=== PATIENT | female | born 1990 | race Caucasian/White ===

== ENCOUNTER 2018-10-02 17:19 | Emergency (ER) | payer SELFPAY ==
[2018-10-02 17:24] VITALS: BP 121/83; PULSE 81; TEMP 98.3; BMI 21.6
[2018-10-02] MEDS ORDERED: ONDANSETRON 4 MG/2 ML VIAL IVPUSH ONE (17:38)
[2018-10-02] MEDS ORDERED: SODIUM CHLORIDE 0.9% 1000 ML INFUS.BAG IV ONE (17:38)
[2018-10-02] MEDS ORDERED: ONDANSETRON 4 MG/2 ML VIAL ONE (17:41)
--- NOTE | 2018-10-02 17:50 | PDOC ---
Attending Attestation - Resident Resident Name: Wendy Boyce - ED Attending Attestation I have performed the following: I have examined & evaluated the patient, The case was reviewed & discussed with the resident, I agree w/resident's findings & plan, Exceptions are as noted - HPI HPI: 10/02/18 18:09 Reviewed Residents HPI - Physicial Exam PE: 10/02/18 18:09 Reviewed Residents PE - Medical Decision Making 10/02/18 18:09 27 years old past medical history significant for paroxysmal tachycardia on beta yennifer, IBS presents to the ED with nausea vomiting diarrhea for the last 2 days as well as multiple falls and head injuries while snowboarding. No loss of consciousness Today patient noted dark urine weakness muscle aches headache and commented that yesterday she appeared confused her friends Nonfocal neurologic examination at this time ill-appearing however given history we'll check labs CK hydrate test head CT IV Tylenol observe and reassess Labs notable for mild rhabdo with nl. Creatinine. Plan is 2nd liter NS, recheck CK, if trending down and pt. tolerating PO, can be discharged home Dr. Shelton to follow up labs and re-evaluate patient 10/02/18 18:57
[2018-10-02] MEDS ORDERED: ACETAMINOPHEN INJECTION 100 ML IVPB ONE (18:07)
[2018-10-02] MEDS ORDERED: ACETAMINOPHEN 1000 MG/100 ML VIAL (NON FORMULARY) IVPB ONE (18:07)
--- NOTE | 2018-10-02 18:07 | PDOC ---
History of Present Illness - General Chief Complaint: Vomiting/Diarrhea Stated Complaint: body aches,diarrhea,vomiting Time Seen by Provider: 10/02/18 17:39 History Source: Patient Exam Limitations: No Limitations - History of Present Illness Initial Comments: Pt is a 27 yo F, with PMH of IBS, GERD, and tachycardia (PVCs, palpitations, takes 25 mg PO metoprolol Qday), who is presenting with complaints of nausea, vomiting, diffuse body aches, and loose stool x2 days. Pt states she went snowboarding for 2 days, starting 3 days ago, and fell "numerous times". She was wearing a helmet and did not have any LOC. When she was leaving from snowboarding, she also slipped and fell on the ice and hit her head, and also hit her head with the car door. She has had trouble articulating her sentences. Starting yesterday, she also had multiple episodes of NB loose brown stool, nausea, and one episode of NBNB vomiting. Her urine has been dark. She had mild headache and photophobia today with body aches "all over". Pt denies any recent fevers/chills, vision changes, syncope, chest pain, palpitations, SOB, abdominal pain, dysuria/hematuria/urgency, or joint/leg swelling. Social: Pt denies any cigarette, alcohol, or drug use. Pt denies any recent travel or sick contacts. Surgical: no relevant history. Family: no relevant history. 10/02/18 18:09 Past History - Travel Traveled outside of the country in the last 30 days: No Close contact w/someone who was outside of country & ill: No - Past Medical History Allergies/Adverse Reactions: Allergies Allergy/AdvReac Type Severity Reaction Status Date / Time metoclopramide HCl AdvReac Verified 10/02/18 17:20 [From Reglan] Home Medications: Ambulatory Orders Esomeprazole Mag Trihydrate [Nexium] 20 mg PO DAILY 11/22/14 Metoprolol Tartrate 25 mg PO DAILY 10/02/18 Cardiac Disorders: Yes (PVC) COPD: No GI Disorders: Yes (GERD) - Surgical History Abdominal Surgery: No GI Surgery: No Neurologic Surgery: No - Immunization History Immunization Up to Date: Yes - Suicide/Smoking/Psychosocial Hx Smoking History: Never smoked Have you smoked in the past 12 months: No Information on smoking cessation initiated: No Hx Alcohol Use: Yes (socially) Drug/Substance Use Hx: No Substance Use Type: None Review of Systems - Review of Systems Able to Perform ROS?: Yes Is the patient limited Fijian proficient: No Constitutional: Yes: Malaise, Weight Stable. No: Chills, Diaphoresis, Fever, Loss of Appetite, Weakness HEENTM: Yes: See HPI. No: Blurred Vision, Recent change in vision, Double Vision, Nose Congestion, Nose Bleeding, Throat Pain, Throat Swelling, Difficulty Swallowing Respiratory: No: Cough, Shortness of Breath Cardiac (ROS): No: Chest Pain, Edema, Irregular Heart Rate, Lightheadedness, Palpitations (chronic, none over past few days, controlled with metoprolol), Syncope, Chest Tightness ABD/GI: Yes: Diarrhea, Nausea, Poor Appetite, Poor Fluid Intake, Vomiting. No: Blood Streaked Bowels, Constipated, Indigestion, Abdominal cramping : Yes: Testicular Swelling. No: Burning, Dysuria, Frequency, Flank Pain, Hematuria, Pain, Urgency Musculoskeletal: Yes: Muscle Pain. No: Back Pain, Joint Pain, Joint Swelling, Muscle Weakness, Neck Pain Integumentary: No: Bruising, Rash Neurological: Yes: Headache. No: Numbness, Paresthesia, Tremors, Weakness, Unsteady Gait, Ataxia, Dizziness Psychiatric: No: Sleep Pattern Change, Change in Appetite Endocrine: No: Increased Urine, Change in Weight Hematologic/Lymphatic: No: Anemia, Blood Clots, Easy Bleeding, Easy Bruising All Other Systems: Reviewed and Negative *Physical Exam - Vital Signs Last Vital Signs Temp Pulse Resp BP Pulse Ox 98.3 F 81 18 121/83 100 10/02/18 17:20 10/02/18 17:20 10/02/18 17:20 10/02/18 17:20 10/02/18 17:20 - Physical Exam Comments: Vitals stable, pt afebrile. Pt is ill/uncomfortable appearing, normal body habitus. PE showed pt alert and oriented. network support technician generally intact, muscular strength and sensation intact. Pt significantly tender in large muscles (biceps and quadriceps) with extremity movement, appears to have spasm. Mild difficulty with articulation of speech, but network support technician intact. No tenderness with neck flexion/ extension, no tenderness in neck with hip flexion. No midline spinal or neck tenderness to palpation. Eyes PERRLA, EOMI. Oropharynx without erythema or exudates, no LAD b/l. Dry oral membranes and decreased skin turgor. No nasal congestion, hearing intact. Clear heart sounds, S1/S2, no JVD, b/l pedal edema, or heart murmur. Clear lung sounds, no respiratory distress, wheezes, crackles, or accessory muscle use. No abdominal or CVA tenderness to palpation, no rebound , no guarding. Abdomen soft, non-distended, and with normoactive bowel sounds. + CVA tenderness b/l. Skin without jaundice or rash. 10/02/18 18:08 Moderate Sedation - Procedure Monitoring Vital Signs: Procedure Monitoring Vital Signs Temperature 98.3 F 10/02/18 17:20 Pulse Rate 81 10/02/18 17:20 Respiratory Rate 18 10/02/18 17:20 Blood Pressure 121/83 10/02/18 17:20 O2 Sat by Pulse Oximetry (%) 100 10/02/18 17:20 ED Treatment Course - LABORATORY CBC & Chemistry Diagram: 10/02/18 17:40 10/02/18 17:40 - Medications Given in the ED: ED Medications Discontinued Medications Generic Name Dose Route Start Last Admin Trade Name Freq PRN Reason Stop Dose Admin Ondansetron HCl 4 mg 10/02/18 17:38 10/02/18 17:50 Zofran Injection IVPUSH 10/02/18 17:39 4 mg ONCE ONE Administration Sodium Chloride 2,000 ml 10/02/18 17:38 10/02/18 17:41 Normal Saline - IV 10/02/18 17:39 2,000 ml ONCE ONE Administration Medical Decision Making - Medical Decision Making Pt was seen at bedside, also will be seen by attending Dr. Chapin. Pt presenting with complaints of nausea, vomiting, diffuse body aches, and loose stool x2 days. Pt states she went snowboarding for 2 days, starting 3 days ago, and fell "numerous times". She was wearing a helmet and did not have any LOC. When she was leaving from snowboarding, she also slipped and fell on the ice and hit her head, and also hit her head with the car door. She has had trouble articulating her sentences. Starting yesterday, she also had multiple episodes of NB loose brown stool, nausea, and one episode of NBNB vomiting. Her urine has been dark. She had mild headache and photophobia today with body aches "all over". Pt denies any recent fevers/chills, vision changes, syncope, chest pain, palpitations, SOB, abdominal pain, dysuria/hematuria/urgency, or joint/leg swelling. Vitals stable, pt afebrile. Pt is ill/uncomfortable appearing, normal body habitus. PE showed pt alert and oriented. network support technician generally intact, muscular strength and sensation intact. Pt significantly tender in large muscles (biceps and quadriceps) with extremity movement, appears to have spasm. Mild difficulty with articulation of speech, but network support technician intact. No tenderness with neck flexion/ extension, no tenderness in neck with hip flexion. No midline spinal or neck tenderness to palpation. Eyes PERRLA, EOMI. Oropharynx without erythema or exudates, no LAD b/l. Dry oral membranes and decreased skin turgor. No nasal congestion, hearing intact. Clear heart sounds, S1/S2, no JVD, b/l pedal edema, or heart murmur. Clear lung sounds, no respiratory distress, wheezes, crackles, or accessory muscle use. No abdominal or CVA tenderness to palpation, no rebound , no guarding. Abdomen soft, non-distended, and with normoactive bowel sounds. + CVA tenderness b/l. Skin without jaundice or rash. Considering rhabdomyolysis vs viral/toxic GI syndrome/gastroenteritis. Considering head bleed vs concussion considering difficulty with speech articulation, n/v, and multiple falls. Less likely meningitis, as pt had no meningeal signs on exam, no rash, no fever. Ordered work-up including CBC, CMP, CPK, lipase, rapid influezna, UA, urine culture, urine test. Will order non-contrast CT head to r/o bleed pending negative test. Provided 2 L IV NS and 4 mg IV zofran for improvement of nausea and dehydration. Will continue to reassess pt and monitor for symptomatic improvement. ECG: NSR, intervals WNL. No TWIs or significant ST segment changes. No PVCs noted. 10/02/18 17:57 CBC WNL UA negative for infection. Urine negative, pt can be taken for non-contrast head CT. 10/02/18 18:28 CMP: Cl 112 CPK 800s. Likely rhabdomyolysis considering history and physical exam. 10/02/18 18:[address] negative for acute pathology. Providing second liter of IV NS. Will re-check CPK after hydration to ensure decrease, and that pt can tolerate PO fluids for home care. 10/02/18 18:51 Pt signed out to night team. Explained presentation, ED course, any pending results, and needed interventions. 10/02/18 19:03 *DC/Admit/Observation/Transfer Diagnosis at time of Disposition: Viral syndrome Rhabdomyolysis Qualifiers: Rhabdomyolysis type: non-traumatic Qualified Code(s): M62.82 - Rhabdomyolysis - Referrals Referrals: Be[facility] Mullen [Non Staff, Medical] - - Patient Instructions Printed Discharge Instructions: DI for Rhabdomyolysis - Post Discharge Activity
[2018-10-02 18:14] LABS: BASO % 0.3 % (0-2.0); EOS % 2.6 % (0-4.5); HEMATOCRIT 34.3 % (32.4-45.2); LYMPH % 36.9 % (8-40); MCH 28.6 pg (25.7-33.7); MCHC 32.1 g/dl (32.0-36.0); MEAN CELL VOLUME 89.2 fl (80-96); MEAN PLT VOLUME 9.6 fl (7.5-11.1); MONO % 7.6 % (3.8-10.2); NEUT % 52.6 % (42.8-82.8); PLATELET COUNT 200 K/MM3 (134-434); RBC 3.84 M/mm3 (3.60-5.2); RDW 12.7 % (11.6-15.6); WHITE BLOOD COUNT 5.2 K/mm3 (4.0-10.8)
[2018-10-02 18:25] LABS: PH,URINE 5.5 (4.5-8); URINE APPEARANCE Clear; URINE BILIRUBIN Negative (NEGATIVE); URINE COLOR Yellow; URINE GLUCOSE (UA) Negative (NEGATIVE); URINE KETONE Negative (NEGATIVE); URINE LEUK ESTERASE Negative (NEGATIVE); URINE NITRITE Negative (NEGATIVE); URINE PROTEIN Negative (NEGATIVE); URINE UROBILINOGEN 0.2 (0.2-1.0)
[2018-10-02 18:29] LABS: ALBUMIN 3.2 g/dl (3.4-5.0); ALK PHOS 28 U/L (45-117); ANION GAP 4 MMOL/L (8-16); BILIRUBIN,TOTAL 0.4 mg/dl (0.2-1); BLOOD UREA NITROGEN 13 mg/dl (7-18); CHLORIDE 112 mmol/L (98-107); CO2 22 mmol/L (21-32); CREATININE 0.7 mg/dl (0.55-1.3); GLUCOSE,RANDOM 95 mg/dl (74-106); POTASSIUM 3.8 mmol/L (3.5-5.1); SGOT/AST 25 U/L (15-37); SGPT/ALT 18 U/L (13-61); SODIUM 138 mmol/L (136-145); TOT PROT 5.5 g/dl (6.4-8.2)
--- NOTE | 2018-10-02 20:41 | PDOC ---
*Physical Exam - Vital Signs Last Vital Signs Temp Pulse Resp BP Pulse Ox 98.3 F 81 18 121/83 100 10/02/18 17:20 10/02/18 17:20 10/02/18 17:20 10/02/18 17:20 10/02/18 17:20 ED Treatment Course - LABORATORY CBC & Chemistry Diagram: 10/02/18 17:40 10/02/18 17:40 - ADDITIONAL ORDERS Additional order review: Laboratory Results 10/02/18 10/02/18 10/02/18 17:58 17:58 17:40 Sodium Potassium Chloride Carbon Dioxide Anion Gap BUN Creatinine Creat Clearance w eGFR Random Glucose Calcium Total Bilirubin AST ALT Alkaline Phosphatase Creatine Kinase 835 H Creatine Kinase Index 0.3 CK-MB (CK-2) 2.8 Total Protein Albumin Lipase Urine Color Yellow Urine Appearance Clear Urine pH 5.5 Ur Specific [place] 1.025 Urine Protein Negative Urine Glucose (UA) Negative Urine Ketones Negative Urine Blood Negative Urine Nitrite Negative Urine Bilirubin Negative Urine Urobilinogen 0.2 Ur Leukocyte Esterase Negative Urine HCG, Qual Negative 10/02/18 10/02/18 17:40 17:40 Sodium 138 Potassium 3.8 Chloride 112 H Carbon Dioxide 22 Anion Gap 4 L BUN 13 Creatinine 0.7 Creat Clearance w eGFR > 60 Random Glucose 95 Calcium 8.0 L Total Bilirubin 0.4 AST 25 ALT 18 Alkaline Phosphatase 28 L Creatine Kinase Creatine Kinase Index CK-MB (CK-2) Total Protein 5.5 L Albumin 3.2 L Lipase 129 Urine Color Urine Appearance Urine pH Ur Specific [place] Urine Protein Urine Glucose (UA) Urine Ketones Urine Blood Urine Nitrite Urine Bilirubin Urine Urobilinogen Ur Leukocyte Esterase Urine HCG, Qual 10/02/18 17:40 RBC 3.84 MCV 89.2 MCHC 32.1 RDW 12.7 MPV 9.6 Neutrophils % 52.6 Lymphocytes % 36.9 Monocytes % 7.6 Eosinophils % 2.6 Basophils % 0.3 - Medications Given in the ED: ED Medications Discontinued Medications Generic Name Dose Route Start Last Admin Trade Name Freq PRN Reason Stop Dose Admin Acetaminophen 1,000 mg 10/02/18 18:07 10/02/18 18:12 Ofirmev Injection - IVPB 10/02/18 18:08 1,000 mg ONCE ONE Administration Ondansetron HCl 4 mg 10/02/18 17:38 10/02/18 17:50 Zofran Injection IVPUSH 10/02/18 17:39 4 mg ONCE ONE Administration Sodium Chloride 2,000 ml 10/02/18 17:38 10/02/18 17:41 Normal Saline - IV 10/02/18 17:39 2,000 ml ONCE ONE Administration Progress Note - Progress Note Progress Note: Care of this patient was transferred to ma from Dr. Chapin at 1900 hrs. This is a 27-year-old female who comes in complaining of some headache and nausea. Patient went snowboarding he did fall multiple times hitting her head. Patient had a CAT scan that was negative for any acute pathology Patient was hydrated with some IV fluids and her initial CK was elevated. However her troponin was negative The elevated see EK is most likely secondary to her multiple falls while snowboarding. Patient will be hydrated with a second liter of normal saline and her CPK will be repeated if it is negative she will be discharged with some nausea medicine. 21:00 Reevaluation patient feels better however still does have some body aches and headache. Patient's CPK repeat is improved at 761. Patient discharged home prescription for Zofran sent to her pharmacy. Patient will follow-up with primary care doctor as needed. *DC/Admit/Observation/Transfer Diagnosis at time of Disposition: Viral syndrome Rhabdomyolysis Qualifiers: Rhabdomyolysis type: non-traumatic Qualified Code(s): M62.82 - Rhabdomyolysis - Discharge Dispostion Disposition: HOME Condition at time of disposition: Improved Decision to Admit order: No - Prescriptions Prescriptions: Ondansetron [Zofran Odt -] 4 mg SL TID #21 od.tablet - Referrals Referrals: [facility] Mullen [Non Staff, Medical] - - Patient Instructions Printed Discharge Instructions: DI for Rhabdomyolysis Additional Instructions: For the pain U can take Tylenol or Motrin as directed on the bottle. For nausea take Zofran 1 tablet as often as every 6 hours. Return to the emergency department immediately with ANY new, persistent or worsening symptoms. Continue any medications as previously prescribed by your physician. You should follow up with your primary doctor as soon as possible regarding today's emergency department visit. . Please make sure your doctor reviews the results of your emergency evaluation. Thank you for coming to the Emergency Department today for your care. It was a pleasure to see you today. Please note that your evaluation is INCOMPLETE until you follow-up with your doctor. - Post Discharge Activity
[2018-10-02] MEDS ORDERED: KETOROLAC TROMETHAMINE 30 MG/1 ML VIAL ONE (20:50)
[2018-10-02] MEDS ORDERED: KETOROLAC TROMETHAMINE 30 MG/1 ML VIAL IVPUSH ONE (20:59)
--- NOTE | 2018-10-03 22:16 | EKG ---
Test Reason : Blood Pressure : / mmHG Vent. Rate : 070 BPM Atrial Rate : 070 BPM P-R Int : 146 ms QRS Dur : 086 ms QT Int : 428 ms P-R-T Axes : 063 088 042 degrees QTc Int : 462 ms NORMAL SINUS RHYTHM NORMAL ECG NO PREVIOUS ECGS AVAILABLE Confirmed by WILBERT MUNOZ MD ([id number]) on 10/03/2018 10:15:49 PM Referred By: MD GOMES Confirmed By:WILBERT MUNOZ MD
== END 2018-10-02 21:05 | disposition home or self-care (01) ==
LOC: FER 17:19
PROC: 3E0333Z Introduction of Anti-inflammatory into Peripheral Vein, Percutaneous Approach (ICD-10-PCS; principal; 2018-10-02)
PROC: 3E033NZ Introduction of Analgesics, Hypnotics, Sedatives into Peripheral Vein, Percutaneous Approach (ICD-10-PCS; 2018-10-02)
PROC: 3E0337Z Introduction of Electrolytic and Water Balance Substance into Peripheral Vein, Percutaneous Approach (ICD-10-PCS; 2018-10-02)
DX: B34.9 Viral infection, unspecified (principal); M62.82 Rhabdomyolysis; K21.9 Gastro-esophageal reflux disease without esophagitis; I49.3 Ventricular premature depolarization
CPT/HCPCS: 36415; 70450-TC; 80053; 81003; 82550; 82553; 83690; 84703; 85025; 87086; 87804; 93005; 99284-25; J0131; J7030